=== PATIENT | male | born 1985 | race African-American/Black ===

== ENCOUNTER 2025-07-24 17:08 | Emergency (ER) | payer OTHER, MEDICAID ==
[~2025-07-24] VITALS: Ht 170.2 cm; Wt 80.0 kg
[2025-07-24 17:43] VITALS: O2SAT 97
[2025-07-24] MEDS: IBUPROFEN 800MG TABLET PO ONE (21:01)
[2025-07-24] MEDS: CYCLOBENZAPRINE 10MG TABLET PO SCH (21:01)
[2025-07-24] MEDS ORDERED: IBUP-2030 MT (21:46)
[2025-07-24] MEDS ORDERED: CYCL5TAB3 MT (21:46)
[2025-07-24 21:57] VITALS: BP 122/86; PULSE 51; RESP 15; TEMP 36.5; O2SAT 95
== END 2025-07-24 21:59 | disposition home or self-care (01) ==
LOC: ER 17:08
DX: S33.5XXA Sprain of ligaments of lumbar spine, initial encounter (principal); J45.909 Unspecified asthma, uncomplicated; V89.2XXA Person injured in unspecified motor-vehicle accident, traffic, initial encounter; Y93.89 Activity, other specified; Y92.410 Unspecified street and highway as the place of occurrence of the external cause; Y99.8 Other external cause status
CPT/HCPCS: 72100; 99283